=== PATIENT | male | born 1950 | race African-American/Black ===

== ENCOUNTER 2022-08-31 11:01 | Inpatient (IN) | payer OTHER ==
[~2022-08-31] VITALS: Ht 180.3 cm; Wt 91.8 kg
[2022-08-31 11:58] LABS: Eosinophils # (auto) 0 10 ^3/uL (0-0.8); Eosinophils % (auto) 0.1 % (0.0-7.0); Lymphocytes # (auto) 0.8 10 ^3/uL (0.4-5.4)
[2022-08-31 11:59] LABS: Basophils # (auto) 0.1 10 ^3/uL (0-0.2); Basophils % (auto) 0.3 % (0.0-2.0); Hematocrit 33.4 % (41.0-53.0); Hemoglobin 10.6 g/dL (13.5-17.5); Lymphocytes % (auto) 3.9 % (10.0-50.0); Mean Corpuscular Hemoglobin 25.8 pg (28.0-32.0); Mean Corpuscular Hgb Conc. 31.7 g/dL (32.0-36.0); Mean Corpuscular Volume 81.4 fL (80.0-100.0); Monocytes # (auto) 1.1 10 ^3/uL (0-1.3); Monocytes % (auto) 5.6 % (0.0-12.0); Neutrophils # (auto) 17.3 10 ^3/uL (1.6-8.6); Neutrophils % (auto) 90.1 % (37.0-80.0); Red Cell Distribution Width 14.3 % (11.8-14.3); White Blood Cell 19.2 10^3/uL (4.4-10.8)
[2022-08-31] MEDS ORDERED: InsuLIN REG 1unit/0.01ml Soln (100units/ml) IV ONE ×2 (12:00→15:15)
[2022-08-31] MEDS ORDERED: SODIUM CHLORIDE 0.9% 1,000 ML IV ONE ×2 (12:00→16:00)
[2022-08-31 12:04] LABS: Urine Bacteria FEW /hpf (None Seen); Urine Blood 3+ /uL (Negative); Urine Specific Gravity 1.019 (1.001-1.035); Urine WBC 1 /hpf (0 - 3)
[2022-08-31 12:31] LABS: Potassium 4.8 mmol/L (3.5-5.1); Sodium 126 mmol/L (136-145)
[2022-08-31 12:32] LABS: Alanine Aminotransferase 38 U/L (16-61); Albumin 2.1 g/dL (3.4-5.0); Alkaline Phosphatase 343 U/L (45-117); Anion Gap 12 (5-15); Aspartate Aminotransferase 53 U/L (15-37); BUN/Creatinine Ratio 15.5; Blood Urea Nitrogen 25 mg/dL (7-18); Calcium 8.2 mg/dL (8.5-10.1); Carbon Dioxide 22 mmol/L (21-32); Chloride 92 mmol/L (98-107); GFR African American 55 mL/min; GFR Non-African American 45 mL/min; Total Protein 7.7 g/dL (6.4-8.2)
[2022-08-31 12:34] LABS: Glucose 463 mg/dL (74-106)
[2022-08-31] MEDS ORDERED: ENOXAPARIN SOD 100 MG/1 ML SYRINGE SC ONE (13:45)
[2022-08-31] MEDS ORDERED: cefTRIAXone 1GM/50ML D5W 50 ML IV ONE (15:30)
[2022-08-31] MEDS ORDERED: AZITHROMYCIN 500MG/ 250ML 250 ML IV ONE (15:30)
[2022-08-31] MEDS ORDERED: DEXTROSE (50%) 50ML SYRG IV PRN (15:45)
[2022-08-31] MEDS ORDERED: NITROGLYCERIN 0.4 MG SL TAB SL PRN (16:00)
[2022-08-31] MEDS ORDERED: MORPHINE SULFATE INJ 2 MG/ml SYRG IV PRN (16:00)
[2022-08-31] MEDS: ACCU-CHEK COMFORT CURVE STRIP VI SCH ×2 (17:20→22:08)
[2022-08-31] MEDS: InsuLIN REG 1unit/0.01ml Soln (100units/ml) SC SCH ×2 (17:22→22:09)
[2022-08-31] MEDS: ATORVASTATIN 20 MG TAB PO SCH (17:23)
[2022-08-31 17:28] LABS: Lactic Acid w/Reflex 2.2 mmol/L (0.4-2.0)
[2022-08-31] MEDS ORDERED: FOLIC ACID 1 MG TAB PO ONE (17:30)
[2022-08-31] MEDS ORDERED: MULTIPLE VITAMIN TAB PO ONE (17:30)
[2022-08-31] MEDS ORDERED: LORazepam 2MG/ML-1ML VIAL IV PRN (17:30)
[2022-08-31] MEDS: HEPARIN SODIUM (PORCINE) 5000 UNITS/ML 1ML VIAL SC SCH (22:07)
[2022-09-01 05:13] LABS: Basophils # (auto) 0 10 ^3/uL (0-0.2); Basophils % (auto) 0.1 % (0.0-2.0); Eosinophils # (auto) 0 10 ^3/uL (0-0.8); Eosinophils % (auto) 0.1 % (0.0-7.0); Hematocrit 30.7 % (41.0-53.0); Lymphocytes # (auto) 1.4 10 ^3/uL (0.4-5.4); Lymphocytes % (auto) 7.1 % (10.0-50.0); Mean Corpuscular Hemoglobin 26.1 pg (28.0-32.0); Mean Corpuscular Hgb Conc. 32.5 g/dL (32.0-36.0); Mean Corpuscular Volume 80.3 fL (80.0-100.0); Monocytes # (auto) 1.8 10 ^3/uL (0-1.3); Monocytes % (auto) 9.4 % (0.0-12.0); Neutrophils # (auto) 16.5 10 ^3/uL (1.6-8.6); Neutrophils % (auto) 83.3 % (37.0-80.0); Red Blood Cells 3.83 10^6/uL (4.5-5.90); Red Cell Distribution Width 14.3 % (11.8-14.3); White Blood Cell 19.8 10^3/uL (4.4-10.8)
[2022-09-01 05:25] LABS: Albumin 1.9 g/dL (3.4-5.0); Anion Gap 10 (5-15); Blood Urea Nitrogen 18 mg/dL (7-18); Calcium 8.5 mg/dL (8.5-10.1); Carbon Dioxide 24 mmol/L (21-32); Chloride 95 mmol/L (98-107); Glucose 310 mg/dL (74-106); Potassium 3.6 mmol/L (3.5-5.1); Sodium 129 mmol/L (136-145)
[2022-09-01 05:33] LABS: Alanine Aminotransferase 33 U/L (16-61); Alkaline Phosphatase 299 U/L (45-117); Aspartate Aminotransferase 51 U/L (15-37); BUN/Creatinine Ratio 16.8; GFR African American 88 mL/min; GFR Non-African American 72 mL/min; Total Protein 7.8 g/dL (6.4-8.2)
[2022-09-01 05:38] LABS: CRP High Sensitivity > 19.0 mg/dL (< 0.3)
[2022-09-01] MEDS: ACCU-CHEK COMFORT CURVE STRIP VI SCH ×4 (06:42→22:30)
[2022-09-01] MEDS: InsuLIN REG 1unit/0.01ml Soln (100units/ml) SC SCH ×4 (06:45→22:27)
[2022-09-01] MEDS ORDERED: VANCOMYCIN PER PHARMACY 0 MG IV SCH (08:30)
[2022-09-01] MEDS ORDERED: cefTRIAXone 1GM/50ML D5W 50 ML IV SCH (09:00)
[2022-09-01] MEDS ORDERED: VANCOMYCIN 1GM/250ML 250 ML IV ONE (09:00)
[2022-09-01 09:56] LABS: Magnesium 2.2 mg/dL (1.6-2.6); Phosphorus 1.4 mg/dL (2.5-4.90)
[2022-09-01] MEDS ORDERED: AZITHROMYCIN 500MG/ 250ML 250 ML IV SCH (10:00)
[2022-09-01] MEDS ORDERED: ASPirin 81 mg TAB PO ONE (10:00)
[2022-09-01] MEDS: FUROSEMIDE 40 MG/4 ML VIAL IV SCH (10:38)
[2022-09-01] MEDS: THIAMINE HCL 100 MG TAB PO SCH (10:38)
[2022-09-01] MEDS: HEPARIN SODIUM (PORCINE) 5000 UNITS/ML 1ML VIAL SC SCH ×2 (10:39→22:23)
[2022-09-01 12:35] LABS: Protein, Urine 184.4 mg/dL (0.0-11.9)
[2022-09-01] MEDS ORDERED: POTASSIUM CHL 20 Meq TABLET PO ONE (15:15)
[2022-09-01] MEDS: METOPROLOL TARTRATE 25 MG TAB PO SCH ×2 (15:25→22:21)
[2022-09-01] MEDS: ATORVASTATIN 20 MG TAB PO SCH (18:45)
[2022-09-01 22:30] VITALS: BP 121/55
[2022-09-02] VITALS (11 sets, daily range): BP systolic 98–158; BP diastolic 51–101
[2022-09-02] MEDS: VANCOMYCIN 1GM/250ML 250 ML IV SCH ×3 (00:35→23:54)
[2022-09-02] MEDS ORDERED: CLON0.1T PO (01:46)
[2022-09-02] MEDS: PIPERACILLIN-TAZOB 3.375GM 100 ML IV SCH ×3 (05:43→18:00)
[2022-09-02] MEDS: ACCU-CHEK COMFORT CURVE STRIP VI SCH ×4 (05:44→22:19)
[2022-09-02] MEDS: InsuLIN REG 1unit/0.01ml Soln (100units/ml) SC SCH ×4 (06:01→22:28)
[2022-09-02 06:17] LABS: Basophils # (auto) 0.1 10 ^3/uL (0-0.2); Basophils % (auto) 0.4 % (0.0-2.0); Eosinophils # (auto) 0 10 ^3/uL (0-0.8); Eosinophils % (auto) 0.2 % (0.0-7.0); Hematocrit 30.4 % (41.0-53.0); Hemoglobin 10.1 g/dL (13.5-17.5); Lymphocytes # (auto) 1.3 10 ^3/uL (0.4-5.4); Lymphocytes % (auto) 6.9 % (10.0-50.0); Mean Corpuscular Hemoglobin 26.5 pg (28.0-32.0); Mean Corpuscular Hgb Conc. 33.2 g/dL (32.0-36.0); Mean Corpuscular Volume 79.8 fL (80.0-100.0); Monocytes # (auto) 1.7 10 ^3/uL (0-1.3); Monocytes % (auto) 8.7 % (0.0-12.0); Neutrophils # (auto) 16.3 10 ^3/uL (1.6-8.6); Neutrophils % (auto) 83.8 % (37.0-80.0); Red Blood Cells 3.81 10^6/uL (4.5-5.90); Red Cell Distribution Width 14.1 % (11.8-14.3); White Blood Cell 19.4 10^3/uL (4.4-10.8)
[2022-09-02 06:33] LABS: Alanine Aminotransferase 33 U/L (16-61); Albumin 1.9 g/dL (3.4-5.0); Anion Gap 10 (5-15); Blood Urea Nitrogen 17 mg/dL (7-18); Calcium 8.1 mg/dL (8.5-10.1); Carbon Dioxide 27 mmol/L (21-32); Chloride 90 mmol/L (98-107); Glucose 333 mg/dL (74-106); Sodium 127 mmol/L (136-145)
[2022-09-02 06:43] LABS: Alkaline Phosphatase 299 U/L (45-117); Aspartate Aminotransferase 59 U/L (15-37); BUN/Creatinine Ratio 18.1; Bilirubin, Total 1.2 mg/dL (0.2-1.0); GFR African American 102 mL/min; GFR Non-African American 84 mL/min
[2022-09-02 07:04] LABS: CRP High Sensitivity > 19 mg/dL (< 0.3)
[2022-09-02] MEDS: FUROSEMIDE 40 MG/4 ML VIAL IV SCH (10:22)
[2022-09-02] MEDS: METOPROLOL TARTRATE 25 MG TAB PO SCH ×2 (10:22→23:30)
[2022-09-02] MEDS: THIAMINE HCL 100 MG TAB PO SCH (10:22)
[2022-09-02] MEDS: HEPARIN SODIUM (PORCINE) 5000 UNITS/ML 1ML VIAL SC SCH ×2 (10:38→22:29)
[2022-09-02] MEDS ORDERED: AMIODARONE HCL 150 MG in D5W 5% 100 ML IV ONE (13:15)
[2022-09-02] MEDS ORDERED: AMIODARONE 450mg/250ml AE 250 ML IV ONE (13:19)
[2022-09-02] MEDS ORDERED: ETOMIDATE (2MG/ML) 20ML VIAL IV ONE (13:23)
[2022-09-02] MEDS ORDERED: SUCCINYLCHOLINE CHLORIDE 20 MG/ML 10ML VIAL IV ONE (13:24)
[2022-09-02] MEDS ORDERED: AMIODARONE 450mg/250ml AE 250 ML IV SCH (13:30)
[2022-09-02] MEDS: LIDOCAINE 4MG/ML IV SOLN 500 ML IV SCH ×2 (13:46→23:20)
[2022-09-02 13:57] LABS: Basophils # (auto) 0.1 10 ^3/uL (0-0.2); Basophils % (auto) 0.7 % (0.0-2.0); Red Cell Distribution Width 14.5 % (11.8-14.3)
[2022-09-02 13:59] LABS: Eosinophils # (auto) 0 10 ^3/uL (0-0.8); Eosinophils % (auto) 0.2 % (0.0-7.0); Hematocrit 29.2 % (41.0-53.0); Hemoglobin 9.6 g/dL (13.5-17.5); Lymphocytes # (auto) 1.2 10 ^3/uL (0.4-5.4); Mean Corpuscular Hemoglobin 26.2 pg (28.0-32.0); Mean Corpuscular Hgb Conc. 32.7 g/dL (32.0-36.0); Monocytes # (auto) 1.3 10 ^3/uL (0-1.3); Monocytes % (auto) 6.4 % (0.0-12.0); Neutrophils # (auto) 17.4 10 ^3/uL (1.6-8.6); Neutrophils % (auto) 86.7 % (37.0-80.0); Nucleated Red Blood Cells % 0.1 %; Red Blood Cells 3.65 10^6/uL (4.5-5.90); White Blood Cell 20.1 10^3/uL (4.4-10.8)
[2022-09-02] MEDS ORDERED: SODIUM PHOSPHATES 40 MEQ in D5W 5% 250 ML IV ONE (14:00)
[2022-09-02] MEDS: ERGOCALCIFEROL 50,000 UNIT(1.25MG) CAP PO SCH (14:00)
[2022-09-02 14:15] LABS: Calcium 8.7 mg/dL (8.5-10.1)
[2022-09-02 14:21] LABS: Albumin 1.7 g/dL (3.4-5.0); BUN/Creatinine Ratio 14.8; Bilirubin, Total 1.3 mg/dL (0.2-1.0); Total Protein 7.9 g/dL (6.4-8.2)
[2022-09-02 14:41] LABS: Magnesium 4.8 mg/dL (1.6-2.6)
[2022-09-02] MEDS ORDERED: MAGNESIUM SULF 50% 40 MEQ/10 ML VL IV ONE (15:09)
[2022-09-02] MEDS ORDERED: AMIODARONE HCL (50 MG/ ML) 3 ML VIAL IV ONE (15:09)
[2022-09-02] MEDS: MAGNESIUM SULFATE 1GM/100ML 100 ML IV SCH ×2 (15:27→17:26)
[2022-09-02] MEDS: POTASSIUM CHL 20MEQ/100ML 100 ML IV SCH ×2 (15:47→17:33)
[2022-09-02] MEDS: ATORVASTATIN 20 MG TAB PO SCH (17:30)
[2022-09-02 17:55] LABS: INR 1.09 (0.9-1.15)
[2022-09-02] MEDS: AMIODARONE 450mg/250ml AE 250 ML IV SCH (19:30)
[2022-09-02 23:28] LABS: Albumin 1.8 g/dL (3.4-5.0); BUN/Creatinine Ratio 14.6; Calcium 8.9 mg/dL (8.5-10.1); Potassium 3.4 mmol/L (3.5-5.1)
[2022-09-02 23:31] LABS: Bilirubin, Total 1.4 mg/dL (0.2-1.0); Total Protein 8.2 g/dL (6.4-8.2)
[2022-09-03] VITALS (44 sets, daily range): BP systolic 94–164; BP diastolic 54–118
[2022-09-03] MEDS: PIPERACILLIN-TAZOB 3.375GM 100 ML IV SCH ×4 (00:54→18:17)
[2022-09-03 05:14] LABS: Basophils # (auto) 0.1 10 ^3/uL (0-0.2); Eosinophils # (auto) 0 10 ^3/uL (0-0.8); Eosinophils % (auto) 0.2 % (0.0-7.0); Hemoglobin 9.6 g/dL (13.5-17.5); Nucleated Red Blood Cells % 0.1 %
[2022-09-03 05:16] LABS: Basophils % (auto) 0.7 % (0.0-2.0); Hematocrit 29.3 % (41.0-53.0); Lymphocytes # (auto) 1.1 10 ^3/uL (0.4-5.4); Lymphocytes % (auto) 5.5 % (10.0-50.0); Mean Corpuscular Hemoglobin 26.1 pg (28.0-32.0); Mean Corpuscular Hgb Conc. 32.8 g/dL (32.0-36.0); Mean Corpuscular Volume 79.7 fL (80.0-100.0); Monocytes # (auto) 1.9 10 ^3/uL (0-1.3); Monocytes % (auto) 9.6 % (0.0-12.0); Neutrophils # (auto) 16.3 10 ^3/uL (1.6-8.6); Red Blood Cells 3.67 10^6/uL (4.5-5.90); Red Cell Distribution Width 14.5 % (11.8-14.3); White Blood Cell 19.5 10^3/uL (4.4-10.8)
[2022-09-03 05:36] LABS: Albumin 1.8 g/dL (3.4-5.0); Calcium 8.3 mg/dL (8.5-10.1); Magnesium 2.3 mg/dL (1.6-2.6); Potassium 3.6 mmol/L (3.5-5.1)
[2022-09-03 05:39] LABS: Bilirubin, Total 1.6 mg/dL (0.2-1.0); Phosphorus 3.1 mg/dL (2.5-4.90); Total Protein 7.2 g/dL (6.4-8.2)
[2022-09-03] MEDS: ACCU-CHEK COMFORT CURVE STRIP VI SCH ×4 (06:33→21:17)
[2022-09-03] MEDS: InsuLIN REG 1unit/0.01ml Soln (100units/ml) SC SCH ×4 (06:33→21:53)
[2022-09-03] MEDS: METOPROLOL TARTRATE 25 MG TAB PO SCH (10:00)
[2022-09-03] MEDS: THIAMINE HCL 100 MG TAB PO SCH (10:00)
[2022-09-03] MEDS: HEPARIN SODIUM (PORCINE) 5000 UNITS/ML 1ML VIAL SC SCH (10:00)
[2022-09-03] MEDS: FUROSEMIDE 40 MG/4 ML VIAL IV SCH (10:21)
[2022-09-03] MEDS: AMIODARONE 450mg/250ml AE 250 ML IV SCH (10:21)
[2022-09-03] MEDS ORDERED: LIDOCAINE 2%HCL (LOCAL ANESTH.) INJ 20ML MDV ONE (11:34)
[2022-09-03] MEDS ORDERED: IODIXANOL 320MG/ML 100ML BTL IV ONE (11:35)
[2022-09-03] MEDS ORDERED: VERAPAMIL 2.5MG/ML INJ 2ML VIAL IV ONE (11:52)
[2022-09-03] MEDS ORDERED: HEPARIN SODIUM (PORCINE) 5000 UNITS/ML 1ML VIAL ONE (11:53)
[2022-09-03] MEDS ORDERED: fentaNYL CITRATE 100 MCG/2 ML VL ONE (11:53)
[2022-09-03] MEDS ORDERED: MIDAZOLAM HCL 2MG/2ML 2ml VIAL (1mg/ml) ONE (11:53)
[2022-09-03] MEDS ORDERED: SODIUM CHL 0.9% 0 ML ONE (11:57)
[2022-09-03] MEDS ORDERED: ANGIOMAX 250 MG VIAL IV ONE (11:57)
[2022-09-03] MEDS: VANCOMYCIN 1GM/250ML 250 ML IV SCH (13:11)
[2022-09-03] MEDS ORDERED: ACETAMINOPHEN 500 MG TAB PO ONE ×2 (20:25→22:00)
[2022-09-03] MEDS: ATORVASTATIN 20 MG TAB PO SCH (21:16)
[2022-09-03] MEDS: METOPROLOL TARTRATE 50 MG TAB PO SCH (21:16)
[2022-09-03] MEDS: ENOXAPARIN SOD 100 MG/1 ML SYRINGE SC SCH (21:17)
[2022-09-04] VITALS (18 sets, daily range): BP systolic 93–147; BP diastolic 42–68
[2022-09-04] MEDS: VANCOMYCIN 1GM/250ML 250 ML IV SCH ×2 (00:01→22:41)
[2022-09-04] MEDS: AMIODARONE 450mg/250ml AE 250 ML IV SCH ×2 (00:16→16:30)
[2022-09-04] MEDS: PIPERACILLIN-TAZOB 3.375GM 100 ML IV SCH ×4 (00:16→17:32)
[2022-09-04 05:40] LABS: Neutrophils # (auto) 19.1 10 ^3/uL (1.6-8.6); Nucleated Red Blood Cells % 0.1 %; Red Cell Distribution Width 14.4 % (11.8-14.3)
[2022-09-04 05:47] LABS: Basophils # (auto) 0.3 10 ^3/uL (0-0.2); Basophils % (auto) 1.5 % (0.0-2.0); Eosinophils # (auto) 0.2 10 ^3/uL (0-0.8); Eosinophils % (auto) 0.8 % (0.0-7.0); Lymphocytes # (auto) 1.2 10 ^3/uL (0.4-5.4); Lymphocytes % (auto) 5.2 % (10.0-50.0); Mean Corpuscular Hemoglobin 26.2 pg (28.0-32.0); Mean Corpuscular Hgb Conc. 33.2 g/dL (32.0-36.0); Mean Corpuscular Volume 78.8 fL (80.0-100.0); Monocytes # (auto) 1.9 10 ^3/uL (0-1.3); Monocytes % (auto) 8.4 % (0.0-12.0); Neutrophils % (auto) 84.1 % (37.0-80.0); Red Blood Cells 3.43 10^6/uL (4.5-5.90); White Blood Cell 22.8 10^3/uL (4.4-10.8)
[2022-09-04] MEDS: ACCU-CHEK COMFORT CURVE STRIP VI SCH ×4 (06:05→22:42)
[2022-09-04] MEDS: InsuLIN REG 1unit/0.01ml Soln (100units/ml) SC SCH ×4 (06:06→22:57)
[2022-09-04 06:14] LABS: Potassium 3.3 mmol/L (3.5-5.1)
[2022-09-04 06:15] LABS: BUN/Creatinine Ratio 17.2
[2022-09-04 06:16] LABS: Albumin 1.6 g/dL (3.4-5.0); Bilirubin, Total 2.2 mg/dL (0.2-1.0); Calcium 7.6 mg/dL (8.5-10.1); Total Protein 6.8 g/dL (6.4-8.2)
[2022-09-04] MEDS ORDERED: POTASSIUM EFFERVESENT TAB 25 MEQ GT ONE (09:00)
[2022-09-04] MEDS ORDERED: ACETAMINOPHEN 325 MG TAB PO PRN (09:00)
[2022-09-04] MEDS: FUROSEMIDE 40 MG/4 ML VIAL IV SCH (09:57)
[2022-09-04] MEDS: ENOXAPARIN SOD 100 MG/1 ML SYRINGE SC SCH ×2 (09:58→22:42)
[2022-09-04] MEDS: THIAMINE HCL 100 MG TAB PO SCH (09:58)
[2022-09-04] MEDS: METOPROLOL TARTRATE 50 MG TAB PO SCH ×2 (09:59→22:41)
[2022-09-04] MEDS: NITROGLYCERIN 0.2MG/HR TOPICAL PATCH TD SCH (10:00)
[2022-09-04] MEDS: LIDOCAINE 4MG/ML IV SOLN 500 ML IV SCH (13:30)
[2022-09-04] MEDS: ATORVASTATIN 20 MG TAB PO SCH (22:42)
[2022-09-05] MEDS: PIPERACILLIN-TAZOB 3.375GM 100 ML IV SCH ×4 (00:17→18:41)
[2022-09-05 05:00] VITALS: BP 117/57
[2022-09-05 06:13] LABS: Basophils # (auto) 0.1 10 ^3/uL (0-0.2); Basophils % (auto) 0.6 % (0.0-2.0); Eosinophils # (auto) 0.2 10 ^3/uL (0-0.8); Eosinophils % (auto) 0.9 % (0.0-7.0); Hematocrit 25.5 % (41.0-53.0); Hemoglobin 8.9 g/dL (13.5-17.5); Lymphocytes # (auto) 1.6 10 ^3/uL (0.4-5.4); Mean Corpuscular Hemoglobin 27.1 pg (28.0-32.0); Mean Corpuscular Hgb Conc. 34.9 g/dL (32.0-36.0); Mean Corpuscular Volume 77.7 fL (80.0-100.0); Monocytes # (auto) 1.9 10 ^3/uL (0-1.3); Monocytes % (auto) 8.4 % (0.0-12.0); Neutrophils # (auto) 18.7 10 ^3/uL (1.6-8.6); Neutrophils % (auto) 83.1 % (37.0-80.0); Red Blood Cells 3.28 10^6/uL (4.5-5.90); Red Cell Distribution Width 14.5 % (11.8-14.3); White Blood Cell 22.5 10^3/uL (4.4-10.8)
[2022-09-05] MEDS: ACCU-CHEK COMFORT CURVE STRIP VI SCH ×4 (06:20→22:24)
[2022-09-05] MEDS: InsuLIN REG 1unit/0.01ml Soln (100units/ml) SC SCH ×4 (06:23→22:25)
[2022-09-05 06:33] LABS: Potassium 3.4 mmol/L (3.5-5.1)
[2022-09-05 06:42] LABS: Albumin 1.5 g/dL (3.4-5.0); BUN/Creatinine Ratio 16.5; Bilirubin, Total 2.2 mg/dL (0.2-1.0); Calcium 7.7 mg/dL (8.5-10.1)
[2022-09-05] MEDS: AMIODARONE 450mg/250ml AE 250 ML IV SCH ×2 (07:30→22:30)
[2022-09-05 10:47] VITALS: BP 118/48
[2022-09-05] MEDS: THIAMINE HCL 100 MG TAB PO SCH (12:01)
[2022-09-05] MEDS: ENOXAPARIN SOD 100 MG/1 ML SYRINGE SC SCH ×2 (12:01→22:34)
[2022-09-05] MEDS: NITROGLYCERIN 0.2MG/HR TOPICAL PATCH TD SCH (12:01)
[2022-09-05] MEDS: FUROSEMIDE 40 MG/4 ML VIAL IV SCH (12:02)
[2022-09-05] MEDS: METOPROLOL TARTRATE 50 MG TAB PO SCH ×2 (12:02→22:25)
[2022-09-05 13:08] VITALS: BP 119/63
[2022-09-05] MEDS: LIDOCAINE 4MG/ML IV SOLN 500 ML IV SCH (13:30)
[2022-09-05] MEDS: VANCOMYCIN 1GM/250ML 250 ML IV SCH (16:13)
[2022-09-05 17:00] VITALS: BP 122/65
[2022-09-05 22:00] VITALS: BP 145/58
[2022-09-05] MEDS: ATORVASTATIN 20 MG TAB PO SCH (22:25)
[2022-09-06] MEDS: PIPERACILLIN-TAZOB 3.375GM 100 ML IV SCH ×5 (01:09→23:42)
[2022-09-06 05:00] VITALS: BP 114/53
[2022-09-06 05:47] LABS: Hematocrit 23.9 % (41.0-53.0); Hemoglobin 8.4 g/dL (13.5-17.5); Mean Corpuscular Hemoglobin 27.1 pg (28.0-32.0); Mean Corpuscular Hgb Conc. 35.1 g/dL (32.0-36.0); Mean Corpuscular Volume 77.2 fL (80.0-100.0); Red Blood Cells 3.09 10^6/uL (4.5-5.90); Red Cell Distribution Width 14.6 % (11.8-14.3); White Blood Cell 25.3 10^3/uL (4.4-10.8)
[2022-09-06 05:50] LABS: Basophils % (manual) 0 (0.0-2.0); Blast Cells 0; Myelocytes % 0; Promyelocytes % 0; Reactive Lymphocytes 0
[2022-09-06 06:01] LABS: Albumin 1.4 g/dL (3.4-5.0); Calcium 7.5 mg/dL (8.5-10.1); Potassium 3.2 mmol/L (3.5-5.1)
[2022-09-06] MEDS: ACCU-CHEK COMFORT CURVE STRIP VI SCH ×4 (06:01→22:00)
[2022-09-06] MEDS: InsuLIN REG 1unit/0.01ml Soln (100units/ml) SC SCH ×4 (06:02→22:43)
[2022-09-06 06:05] LABS: Total Protein 6.8 g/dL (6.4-8.2)
[2022-09-06 08:35] VITALS: BP 121/57
[2022-09-06 09:21] LABS: Band Neutrophils % (manual) 19; Eosinophils % (manual) 4 (0-7); Lymphocytes % (manual) 8 (10.0-50.0); Metamyelocytes % 2; Monocytes % (manual) 3 (0-12)
[2022-09-06] MEDS: METOPROLOL TARTRATE 50 MG TAB PO SCH ×2 (10:00→22:45)
[2022-09-06] MEDS: VANCOMYCIN 1GM/250ML 250 ML IV SCH (10:02)
[2022-09-06] MEDS: NITROGLYCERIN 0.2MG/HR TOPICAL PATCH TD SCH (10:02)
[2022-09-06] MEDS: FUROSEMIDE 40 MG/4 ML VIAL IV SCH (10:03)
[2022-09-06] MEDS: ENOXAPARIN SOD 100 MG/1 ML SYRINGE SC SCH ×2 (10:03→22:45)
[2022-09-06] MEDS: THIAMINE HCL 100 MG TAB PO SCH (10:03)
[2022-09-06 13:02] VITALS: BP 93/46
[2022-09-06] MEDS: AMIODARONE 450mg/250ml AE 250 ML IV SCH (13:30)
[2022-09-06] MEDS: LIDOCAINE 4MG/ML IV SOLN 500 ML IV SCH (13:30)
[2022-09-06] MEDS ORDERED: ALBUTEROL MEDNEB 2.5 mg/3ml NEB NEB PRN (14:30)
[2022-09-06 16:50] VITALS: BP 93/46
[2022-09-06 17:00] VITALS: BP 121/70
[2022-09-06 22:00] VITALS: BP 98/46
[2022-09-06] MEDS ORDERED: INSULIN LANTUS (GLARGINE) 1 /0.01ml (100units/ml) SC SCH (22:00)
[2022-09-06] MEDS: ATORVASTATIN 20 MG TAB PO SCH (22:44)
[2022-09-07 03:04] LABS: Mean Corpuscular Hemoglobin 26.1 pg (28.0-32.0)
[2022-09-07 03:05] LABS: Hematocrit 24.5 % (41.0-53.0); Hemoglobin 8.3 g/dL (13.5-17.5); Mean Corpuscular Hgb Conc. 33.9 g/dL (32.0-36.0); Mean Corpuscular Volume 77.1 fL (80.0-100.0); Red Blood Cells 3.18 10^6/uL (4.5-5.90); Red Cell Distribution Width 14.6 % (11.8-14.3); White Blood Cell 28.8 10^3/uL (4.4-10.8)
[2022-09-07 03:34] LABS: Basophils % (manual) 0 (0.0-2.0); Blast Cells 0; Metamyelocytes % 0; Myelocytes % 0; Promyelocytes % 0; Reactive Lymphocytes 0
[2022-09-07] MEDS: VANCOMYCIN 1GM/250ML 250 ML IV SCH ×2 (04:00→10:10)
[2022-09-07] MEDS: AMIODARONE 450mg/250ml AE 250 ML IV SCH (04:30)
[2022-09-07] MEDS: PIPERACILLIN-TAZOB 3.375GM 100 ML IV SCH ×4 (04:53→23:51)
[2022-09-07 05:00] VITALS: BP 95/40
[2022-09-07] MEDS: ACCU-CHEK COMFORT CURVE STRIP VI SCH ×4 (05:32→21:34)
[2022-09-07 05:55] LABS: Albumin 1.4 g/dL (3.4-5.0); Calcium 7.6 mg/dL (8.5-10.1); Potassium 3.1 mmol/L (3.5-5.1)
[2022-09-07 06:00] LABS: BUN/Creatinine Ratio 13.6
[2022-09-07] MEDS: InsuLIN REG 1unit/0.01ml Soln (100units/ml) SC SCH ×4 (06:26→21:47)
[2022-09-07 08:07] LABS: Band Neutrophils % (manual) 15; Eosinophils % (manual) 1 (0-7); Lymphocytes % (manual) 8 (10.0-50.0); Monocytes % (manual) 6 (0-12)
[2022-09-07 09:00] VITALS: BP 120/57
[2022-09-07] MEDS: THIAMINE HCL 100 MG TAB PO SCH (10:11)
[2022-09-07] MEDS: FUROSEMIDE 40 MG/4 ML VIAL IV SCH (10:11)
[2022-09-07] MEDS: ENOXAPARIN SOD 100 MG/1 ML SYRINGE SC SCH ×2 (10:12→21:34)
[2022-09-07] MEDS: METOPROLOL TARTRATE 50 MG TAB PO SCH ×2 (10:12→21:34)
[2022-09-07] MEDS: NITROGLYCERIN 0.2MG/HR TOPICAL PATCH TD SCH (10:17)
[2022-09-07 17:00] VITALS: BP 109/36
[2022-09-07] MEDS: ATORVASTATIN 20 MG TAB PO SCH (21:33)
[2022-09-07 22:00] VITALS: BP 134/61
[2022-09-07] MEDS ORDERED: INSULIN LANTUS (GLARGINE) 1 /0.01ml (100units/ml) SC SCH (22:00)
[2022-09-08] MEDS: VANCOMYCIN 1GM/250ML 250 ML IV SCH ×2 (03:30→21:05)
[2022-09-08 05:00] VITALS: BP 123/56
[2022-09-08 05:57] LABS: Hemoglobin 7.7 g/dL (13.5-17.5); Red Cell Distribution Width 14.5 % (11.8-14.3)
[2022-09-08 06:02] LABS: Hematocrit 22.3 % (41.0-53.0); Mean Corpuscular Hemoglobin 26.7 pg (28.0-32.0); Mean Corpuscular Hgb Conc. 34.6 g/dL (32.0-36.0); Mean Corpuscular Volume 77.1 fL (80.0-100.0); Red Blood Cells 2.89 10^6/uL (4.5-5.90); White Blood Cell 26.4 10^3/uL (4.4-10.8)
[2022-09-08] MEDS: PIPERACILLIN-TAZOB 3.375GM 100 ML IV SCH ×3 (06:03→18:56)
[2022-09-08 06:23] LABS: Basophils % (manual) 0 (0.0-2.0); Blast Cells 0; Metamyelocytes % 0; Myelocytes % 0; Promyelocytes % 0; Reactive Lymphocytes 0
[2022-09-08] MEDS: ACCU-CHEK COMFORT CURVE STRIP VI SCH ×4 (06:24→21:49)
[2022-09-08 06:33] LABS: Albumin 1.4 g/dL (3.4-5.0); BUN/Creatinine Ratio 14.2; Bilirubin, Total 1.8 mg/dL (0.2-1.0); Calcium 7.7 mg/dL (8.5-10.1); Total Protein 7.1 g/dL (6.4-8.2)
[2022-09-08] MEDS: InsuLIN REG 1unit/0.01ml Soln (100units/ml) SC SCH ×4 (06:33→22:04)
[2022-09-08 08:00] VITALS: BP 135/68
[2022-09-08] MEDS ORDERED: SOD CHL 0.45% WITH 20MEQ KCL 1,000 ML IV ONE (08:15)
[2022-09-08] MEDS ORDERED: POTASSIUM CHL 20 Meq TABLET PO ONE (08:15)
[2022-09-08 08:43] LABS: Band Neutrophils % (manual) 16; Eosinophils % (manual) 1 (0-7); Lymphocytes % (manual) 8 (10.0-50.0); Monocytes % (manual) 5 (0-12)
[2022-09-08] MEDS: FUROSEMIDE 40 MG/4 ML VIAL IV SCH (11:28)
[2022-09-08] MEDS: NITROGLYCERIN 0.2MG/HR TOPICAL PATCH TD SCH (11:31)
[2022-09-08] MEDS: METOPROLOL TARTRATE 50 MG TAB PO SCH ×2 (11:32→21:49)
[2022-09-08] MEDS: ENOXAPARIN SOD 100 MG/1 ML SYRINGE SC SCH ×2 (11:33→21:49)
[2022-09-08] MEDS: THIAMINE HCL 100 MG TAB PO SCH (11:33)
[2022-09-08 12:00] VITALS: BP 114/63
[2022-09-08 16:00] VITALS: BP 120/66
[2022-09-08] MEDS: ATORVASTATIN 20 MG TAB PO SCH (21:49)
[2022-09-08] MEDS: INSULIN LANTUS (GLARGINE) 1 /0.01ml (100units/ml) SC SCH (21:53)
[2022-09-08 22:00] VITALS: BP 117/53
[2022-09-09 05:00] VITALS: BP 111/64
[2022-09-09 05:31] LABS: Mean Corpuscular Hemoglobin 27.1 pg (28.0-32.0); Mean Corpuscular Volume 77.3 fL (80.0-100.0); Monocytes # (auto) 1.1 10 ^3/uL (0-1.3); Nucleated Red Blood Cells % 0.1 %
[2022-09-09 05:34] LABS: Basophils # (auto) 0 10 ^3/uL (0-0.2); Basophils % (auto) 0.1 % (0.0-2.0); Eosinophils # (auto) 0.5 10 ^3/uL (0-0.8); Eosinophils % (auto) 2.1 % (0.0-7.0); Hematocrit 23.4 % (41.0-53.0); Hemoglobin 8.2 g/dL (13.5-17.5); Lymphocytes # (auto) 1.2 10 ^3/uL (0.4-5.4); Lymphocytes % (auto) 5.4 % (10.0-50.0); Mean Corpuscular Hgb Conc. 35.1 g/dL (32.0-36.0); Monocytes % (auto) 4.6 % (0.0-12.0); Neutrophils # (auto) 20.3 10 ^3/uL (1.6-8.6); Neutrophils % (auto) 87.8 % (37.0-80.0); Red Blood Cells 3.03 10^6/uL (4.5-5.90); Red Cell Distribution Width 14.5 % (11.8-14.3); White Blood Cell 23.1 10^3/uL (4.4-10.8)
[2022-09-09] MEDS: PIPERACILLIN-TAZOB 3.375GM 100 ML IV SCH ×4 (06:13→18:00)
[2022-09-09] MEDS: InsuLIN REG 1unit/0.01ml Soln (100units/ml) SC SCH ×4 (06:22→22:55)
[2022-09-09] MEDS: ACCU-CHEK COMFORT CURVE STRIP VI SCH ×4 (06:22→22:00)
[2022-09-09 06:51] LABS: Potassium 3.1 mmol/L (3.5-5.1)
[2022-09-09 06:53] LABS: Albumin 1.4 g/dL (3.4-5.0); BUN/Creatinine Ratio 14.4; Calcium 7.8 mg/dL (8.5-10.1); Total Protein 7.4 g/dL (6.4-8.2)
[2022-09-09 08:00] VITALS: BP 140/69
[2022-09-09] MEDS: FUROSEMIDE 40 MG/4 ML VIAL IV SCH (10:20)
[2022-09-09] MEDS: ENOXAPARIN SOD 100 MG/1 ML SYRINGE SC SCH ×2 (10:21→21:35)
[2022-09-09] MEDS: METOPROLOL TARTRATE 50 MG TAB PO SCH ×2 (10:21→21:33)
[2022-09-09] MEDS: THIAMINE HCL 100 MG TAB PO SCH (10:21)
[2022-09-09] MEDS: NITROGLYCERIN 0.2MG/HR TOPICAL PATCH TD SCH (10:29)
[2022-09-09] MEDS: POTASSIUM CHL 20MEQ/100ML 100 ML IV SCH ×2 (10:30→12:21)
[2022-09-09 12:00] VITALS: BP 109/52
[2022-09-09 16:00] VITALS: BP 119/63
[2022-09-09] MEDS: ERGOCALCIFEROL 50,000 UNIT(1.25MG) CAP PO SCH (17:34)
[2022-09-09] MEDS: VANCOMYCIN 1GM/250ML 250 ML IV SCH ×2 (17:34→21:00)
[2022-09-09] MEDS: ATORVASTATIN 20 MG TAB PO SCH (21:33)
[2022-09-09 22:00] VITALS: BP 130/67
[2022-09-09] MEDS: INSULIN LANTUS (GLARGINE) 1 /0.01ml (100units/ml) SC SCH (22:56)
[2022-09-09] MEDS: CLINDAMYCIN 900MG IV 50 ML IV SCH (23:14)
[2022-09-10 05:00] VITALS: BP 112/65
[2022-09-10] MEDS: CLINDAMYCIN 900MG IV 50 ML IV SCH ×3 (05:37→22:06)
[2022-09-10] MEDS ORDERED: CEFEPIME 2 GM in SODIUM CHL 0.9% 50 ML IV SCH (06:00)
[2022-09-10 06:14] LABS: Basophils # (auto) 0 10 ^3/uL (0-0.2); Basophils % (auto) 0.1 % (0.0-2.0); Eosinophils # (auto) 0.3 10 ^3/uL (0-0.8); Eosinophils % (auto) 1.5 % (0.0-7.0); Hematocrit 22.6 % (41.0-53.0); Hemoglobin 7.7 g/dL (13.5-17.5); Lymphocytes # (auto) 1.2 10 ^3/uL (0.4-5.4); Lymphocytes % (auto) 5.6 % (10.0-50.0); Mean Corpuscular Hemoglobin 26.3 pg (28.0-32.0); Mean Corpuscular Volume 77.3 fL (80.0-100.0); Monocytes # (auto) 1.2 10 ^3/uL (0-1.3); Monocytes % (auto) 5.6 % (0.0-12.0); Neutrophils # (auto) 18.8 10 ^3/uL (1.6-8.6); Neutrophils % (auto) 87.2 % (37.0-80.0); Nucleated Red Blood Cells % 0.1 %; Red Blood Cells 2.92 10^6/uL (4.5-5.90); Red Cell Distribution Width 14.6 % (11.8-14.3); White Blood Cell 21.5 10^3/uL (4.4-10.8)
[2022-09-10 06:25] LABS: Potassium 3.6 mmol/L (3.5-5.1)
[2022-09-10 06:32] LABS: Albumin 1.3 g/dL (3.4-5.0); BUN/Creatinine Ratio 17.2; Bilirubin, Total 1.6 mg/dL (0.2-1.0); Calcium 7.6 mg/dL (8.5-10.1)
[2022-09-10] MEDS: InsuLIN REG 1unit/0.01ml Soln (100units/ml) SC SCH ×4 (06:48→21:59)
[2022-09-10] MEDS: ACCU-CHEK COMFORT CURVE STRIP VI SCH ×4 (06:48→22:05)
[2022-09-10 09:00] VITALS: BP 105/66
[2022-09-10] MEDS: CEFEPIME 2 GM in SODIUM CHL 0.9% 50 ML IV SCH ×2 (09:48→18:54)
[2022-09-10] MEDS: METOPROLOL TARTRATE 50 MG TAB PO SCH ×2 (09:48→21:32)
[2022-09-10] MEDS: THIAMINE HCL 100 MG TAB PO SCH (09:48)
[2022-09-10] MEDS: FUROSEMIDE 40 MG/4 ML VIAL IV SCH (09:48)
[2022-09-10] MEDS: ENOXAPARIN SOD 100 MG/1 ML SYRINGE SC SCH ×2 (09:49→21:30)
[2022-09-10] MEDS: NITROGLYCERIN 0.2MG/HR TOPICAL PATCH TD SCH (10:00)
[2022-09-10 12:55] VITALS: BP 117/72
[2022-09-10] MEDS: VANCOMYCIN 1GM/250ML 250 ML IV SCH (13:47)
[2022-09-10 17:23] VITALS: BP 124/64
[2022-09-10] MEDS: ATORVASTATIN 20 MG TAB PO SCH (21:32)
[2022-09-10 22:00] VITALS: BP 123/63
[2022-09-10] MEDS: INSULIN LANTUS (GLARGINE) 1 /0.01ml (100units/ml) SC SCH (22:00)
[2022-09-11] MEDS: CEFEPIME 2 GM in SODIUM CHL 0.9% 50 ML IV SCH ×3 (01:53→17:37)
[2022-09-11 05:00] VITALS: BP 140/71
[2022-09-11] MEDS: CLINDAMYCIN 900MG IV 50 ML IV SCH ×3 (06:27→22:27)
[2022-09-11] MEDS: ACCU-CHEK COMFORT CURVE STRIP VI SCH ×4 (06:29→22:27)
[2022-09-11] MEDS: InsuLIN REG 1unit/0.01ml Soln (100units/ml) SC SCH ×4 (06:29→22:33)
[2022-09-11 07:42] LABS: Mean Corpuscular Hemoglobin 26.7 pg (28.0-32.0); Mean Corpuscular Hgb Conc. 34.5 g/dL (32.0-36.0); Mean Corpuscular Volume 77.5 fL (80.0-100.0); Nucleated Red Blood Cells % 0.1 %
[2022-09-11 07:44] LABS: Basophils # (auto) 0.2 10 ^3/uL (0-0.2); Eosinophils # (auto) 0.4 10 ^3/uL (0-0.8); Eosinophils % (auto) 1.9 % (0.0-7.0); Hematocrit 23.1 % (41.0-53.0); Lymphocytes # (auto) 1.6 10 ^3/uL (0.4-5.4); Lymphocytes % (auto) 7.9 % (10.0-50.0); Monocytes # (auto) 0.9 10 ^3/uL (0-1.3); Monocytes % (auto) 4.6 % (0.0-12.0); Neutrophils # (auto) 16.7 10 ^3/uL (1.6-8.6); Neutrophils % (auto) 84.6 % (37.0-80.0); Red Blood Cells 2.99 10^6/uL (4.5-5.90); Red Cell Distribution Width 14.9 % (11.8-14.3); White Blood Cell 19.8 10^3/uL (4.4-10.8)
[2022-09-11 08:02] LABS: Albumin 1.4 g/dL (3.4-5.0); BUN/Creatinine Ratio 14.9; Calcium 8.3 mg/dL (8.5-10.1); Potassium 3.2 mmol/L (3.5-5.1)
[2022-09-11 08:09] LABS: Bilirubin, Total 1.2 mg/dL (0.2-1.0); Total Protein 8.5 g/dL (6.4-8.2)
[2022-09-11 09:00] VITALS: BP 142/64
[2022-09-11] MEDS: ENOXAPARIN SOD 100 MG/1 ML SYRINGE SC SCH ×2 (09:04→22:28)
[2022-09-11] MEDS: VANCOMYCIN 1GM/250ML 250 ML IV SCH (09:04)
[2022-09-11] MEDS: FUROSEMIDE 40 MG/4 ML VIAL IV SCH (09:05)
[2022-09-11] MEDS: NITROGLYCERIN 0.2MG/HR TOPICAL PATCH TD SCH (09:05)
[2022-09-11] MEDS: METOPROLOL TARTRATE 50 MG TAB PO SCH ×2 (09:06→22:26)
[2022-09-11] MEDS: THIAMINE HCL 100 MG TAB PO SCH (09:06)
[2022-09-11 13:00] VITALS: BP 123/65
[2022-09-11 17:00] VITALS: BP 99/47
[2022-09-11] MEDS ORDERED: POTASSIUM CHL 20 Meq TABLET PO ONE (17:00)
[2022-09-11] MEDS: ATORVASTATIN 20 MG TAB PO SCH (22:26)
[2022-09-11] MEDS: INSULIN LANTUS (GLARGINE) 1 /0.01ml (100units/ml) SC SCH (22:33)
[2022-09-12] MEDS: VANCOMYCIN 1GM/250ML 250 ML IV SCH (02:16)
[2022-09-12] MEDS: CEFEPIME 2 GM in SODIUM CHL 0.9% 50 ML IV SCH (03:16)
[2022-09-12 05:00] VITALS: BP 137/75
[2022-09-12] MEDS: ACCU-CHEK COMFORT CURVE STRIP VI SCH (07:00)
[2022-09-12] MEDS: InsuLIN REG 1unit/0.01ml Soln (100units/ml) SC SCH (07:09)
[2022-09-13 13:56] LABS: Hepatitis A Ab IgM Negative; Hepatitis B Core IgM Negative; Hepatitis C Antibody Negative (Negative)
== END 2022-09-12 07:43 | disposition short-term general hospital (02) | DRG 280 ==
LOC: ER 11:01 → UNDOADMIN 15:54 → TELE 15:54 → TELE-WESTW 09-01 22:02 → TELE-EAST 09-01 22:41 → OBSVTOIN 09-02 09:22 → ICU CENTRL 09-02 13:34 → DOU IN ICU 09-03 18:21 → TELE-EAST 09-04 20:50
PROVIDERS: ADMIT Hospitalist; ATTEND Hospitalist
PROC: 4A023N7 Measurement of Cardiac Sampling and Pressure, Left Heart, Percutaneous Approach (ICD-10-PCS; principal; 2022-09-03)
PROC: B211YZZ Fluoroscopy of Multiple Coronary Arteries using Other Contrast (ICD-10-PCS; 2022-09-03)
PROC: B215YZZ Fluoroscopy of Left Heart using Other Contrast (ICD-10-PCS; 2022-09-03)
DX: I25.10 Atherosclerotic heart disease of native coronary artery without angina pectoris (principal); A48.0 Gas gangrene; I21.A1 Myocardial infarction type 2; J96.01 Acute respiratory failure with hypoxia; N17.0 Acute kidney failure with tubular necrosis; E11.52 Type 2 diabetes mellitus with diabetic peripheral angiopathy with gangrene; E87.1 Hypo-osmolality and hyponatremia; I47.20 Ventricular tachycardia, unspecified; L02.612 Cutaneous abscess of left foot; L03.116 Cellulitis of left lower limb; E11.42 Type 2 diabetes mellitus with diabetic polyneuropathy; Z20.822 Contact with and (suspected) exposure to COVID-19; D63.1 Anemia in chronic kidney disease; E11.22 Type 2 diabetes mellitus with diabetic chronic kidney disease; E11.621 Type 2 diabetes mellitus with foot ulcer; E11.65 Type 2 diabetes mellitus with hyperglycemia; E11.69 Type 2 diabetes mellitus with other specified complication; E88.09 Other disorders of plasma-protein metabolism, not elsewhere classified; I12.9 Hypertensive chronic kidney disease with stage 1 through stage 4 chronic kidney disease, or unspecified chronic kidney disease; J43.9 Emphysema, unspecified; K74.60 Unspecified cirrhosis of liver; L97.529 Non-pressure chronic ulcer of other part of left foot with unspecified severity; N18.9 Chronic kidney disease, unspecified; E55.9 Vitamin D deficiency, unspecified; F17.200 Nicotine dependence, unspecified, uncomplicated; Z75.1 Person awaiting admission to adequate facility elsewhere; Z83.3 Family history of diabetes mellitus; Z88.2 Allergy status to sulfonamides
CPT/HCPCS: 36415; 36600; 71045; 71250; 73718; 76775; 80053; 80074; 80202; 81001; 82306; 82570; 82805; 82962; 83036; 83605; 83735; 83880; 83935; 83970; 84100; 84156; 84300; 84484; 85007; 85025; 85027; 85610; 86141; 87040; 87081; 87426; 93005; 93306; 93458; 93926; 96361; 96365; 96368; 96372; 96375; 99152; 99291; G0378; J0330; J0696; J1815; J2250; J2543; J3480; J3490; J7060; Q9967

== ENCOUNTER 2022-09-25 16:31 | Inpatient (IN) | payer OTHER ==
[~2022-09-25 16:31] MED LIST: CLON0.1T PO
[2022-09-26] MEDS ORDERED: HYDROcodone-ACET 10/325MG TAB PO PRN (03:45)
[2022-09-26] MEDS ORDERED: DEXTROSE (50%) 50ML SYRG IV PRN (03:45)
[2022-09-26] MEDS ORDERED: METHOCARBAMOL 500 MG TAB PO PRN (04:15)
[2022-09-26 04:37] VITALS: BP 124/56
[2022-09-26] MEDS: ACCU-CHEK COMFORT CURVE STRIP VI SCH ×3 (06:40→17:05)
[2022-09-26] MEDS: GABAPENTIN 400 MG CAP PO SCH ×2 (06:40→15:15)
[2022-09-26] MEDS: InsuLIN REG 1unit/0.01ml Soln (100units/ml) SC SCH ×3 (06:41→17:07)
[2022-09-26] MEDS ORDERED: INSULIN LANTUS (GLARGINE) 1 /0.01ml (100units/ml) SC SCH (07:00)
[2022-09-26 08:57] VITALS: BP 103/47
[2022-09-26] MEDS ORDERED: PANTOPRAZOLE 40 MG/10 ML VIAL INJ IV SCH (10:00)
[2022-09-26] MEDS ORDERED: CARVEDILOL 3.125 MG TAB PO SCH (10:00)
[2022-09-26] MEDS ORDERED: ASPirin 81 mg TAB PO SCH (10:00)
[2022-09-26] MEDS ORDERED: CLOPIDOGREL BISULFATE 75 MG TAB PO SCH (10:00)
[2022-09-26] MEDS ORDERED: MULTIPLE VITAMINS W/ MINERALS TAB PO SCH (10:00)
[2022-09-26] MEDS ORDERED: ZINC SULFATE 220mg CAP or TAB PO SCH (10:00)
[2022-09-26] MEDS ORDERED: ASCORBIC ACID 500 MG TAB PO SCH (10:00)
[2022-09-26] MEDS ORDERED: HYDR-4798 PO (12:24)
[2022-09-26] MEDS ORDERED: ATOR20TA50 PO (12:24)
[2022-09-26] MEDS ORDERED: ASCO500T11 PO (12:24)
[2022-09-26] MEDS ORDERED: INSREGI SC (12:24)
[2022-09-26] MEDS ORDERED: INSLANTI SC (12:24)
[2022-09-26] MEDS ORDERED: GABA400C11 PO (12:24)
[2022-09-26] MEDS ORDERED: CAR3125T PO (12:24)
[2022-09-26] MEDS ORDERED: ASPI-325 PO (12:24)
[2022-09-26] MEDS ORDERED: CLOP75TA70 PO (12:24)
[2022-09-26 12:30] VITALS: BP 106/49
[2022-09-26 15:29] VITALS: BP 103/47
[2022-09-26 16:36] VITALS: BP 124/54
[2022-09-26] MEDS ORDERED: MELATONIN 5 MG TAB PO ONE (22:00)
[2022-09-26] MEDS ORDERED: InsuLIN REG 1unit/0.01ml Soln (100units/ml) SC SCH (22:00)
[2022-09-26] MEDS ORDERED: ATORVASTATIN 20 MG TAB PO SCH (22:00)
== END 2022-09-26 18:08 | DRG 301 ==
LOC: CENTRAL 09-26 00:04 → TELE-CENTR 09-26 03:14
PROVIDERS: ADMIT Hospitalist; ATTEND Hospitalist
DX: E11.52 Type 2 diabetes mellitus with diabetic peripheral angiopathy with gangrene (principal); I25.10 Atherosclerotic heart disease of native coronary artery without angina pectoris; E11.621 Type 2 diabetes mellitus with foot ulcer; L97.529 Non-pressure chronic ulcer of other part of left foot with unspecified severity; E11.22 Type 2 diabetes mellitus with diabetic chronic kidney disease; N18.9 Chronic kidney disease, unspecified; I12.9 Hypertensive chronic kidney disease with stage 1 through stage 4 chronic kidney disease, or unspecified chronic kidney disease; E78.2 Mixed hyperlipidemia; D63.8 Anemia in other chronic diseases classified elsewhere; N40.0 Benign prostatic hyperplasia without lower urinary tract symptoms; Z20.822 Contact with and (suspected) exposure to COVID-19; Z72.0 Tobacco use; Z86.79 Personal history of other diseases of the circulatory system; Z88.2 Allergy status to sulfonamides; Z89.512 Acquired absence of left leg below knee; Z95.1 Presence of aortocoronary bypass graft; Z98.61 Coronary angioplasty status
CPT/HCPCS: 36415; 82962; 87426; 97163; C9113; G0378; J1815

== ENCOUNTER 2023-01-14 13:57 | Emergency (ER) | payer OTHER ==
[~2023-01-14] VITALS: Ht 177.8 cm; Wt 77.2 kg
[~2023-01-14 13:57] MED LIST changes: +ASCO500T11 PO; +ASPI-325 PO; +ATOR20TA50 PO; +CAR3125T PO; +CLOP75TA70 PO; +GABA-1251 PO; +HYDR-4798 PO; +INSLANTI SC; +INSREGI SC
[2023-01-14 15:36] LABS: Albumin 2.8 g/dL (3.4-5.0); BUN/Creatinine Ratio 29.3 (10.0-20.0); Calcium 10.1 mg/dL (8.5-10.1)
[2023-01-14 15:51] LABS: Bilirubin, Total 0.4 mg/dL (0.2-1.0); Total Protein 8.5 g/dL (6.4-8.2)
[2023-01-14] MEDS ORDERED: InsuLIN REG 1unit/0.01ml Soln (100units/ml) SC ONE (16:30)
[2023-01-14 17:30] VITALS: BP 126/67
== END 2023-01-14 19:00 | disposition home or self-care (01) ==
LOC: ER 13:57 → EDBD 13:57 → ER 18:59
DX: E11.65 Type 2 diabetes mellitus with hyperglycemia (principal); E78.5 Hyperlipidemia, unspecified; I10 Essential (primary) hypertension; F17.210 Nicotine dependence, cigarettes, uncomplicated; Z88.2 Allergy status to sulfonamides
CPT/HCPCS: 36415; 80053; 82962; 93005; 96372; 99284; J1815